=== PATIENT | female | born 1945 | race Caucasian/White ===

== ENCOUNTER 2023-04-13 10:29 | Observation (INO) | payer MEDICARE, SELFPAY ==
[2023-04-13] VITALS (41 sets, daily range): BP systolic 134–211; BP diastolic 52–103; PULSE 56–110; RESP 14–26; TEMP 36.3–36.8; O2SAT 90–98; BMI 30.7
--- NOTE | ~2023-04-13 | XR_ITS ---
Portable chest x-ray Comparison: None Clinical History: Chest pain Findings: Lungs are clear, without focal consolidation or pleural effusion. Cardiomediastinal silho uette is stable. Bones and soft tissues are unremarkable. Impression: Clear lungs. Reviewed, dictated and finalized at location M. WAREHOUSING SPECIALIST Impression: Clear lungs.
--- NOTE | ~2023-04-13 | CT_ITS ---
EXAMINATION: CT chest abdomen pelvis wo con DATE: 04/14/2023 07:49 INDICATION: Chest pain. Acute kidney injury. TECHNIQUE: Computed tomography (CT) of the chest, abdomen, and pelvis was performed without intraveno us contrast. Automated exposure control and iterative reconstruction technique were employed. The dos e-length product was 736.71 mGy-cm. COMPARISON: None FINDINGS: CHEST CT: The lungs demonstrate mild atelectasis. There are small pleural effusions. There is a stent in proxim al left subclavian artery. There is left atrial enlargement of the heart. There are coronary artery c alcifications. Pericardial calcifications are noted. There is mild mediastinal lymphadenopathy, likel y reactive. There are bridging endplate osteophytes at multiple levels in the spine, consistent with diffuse idiopathic skeletal hyperostosis (DISH). ABDOMEN/PELVIS CT: The liver and spleen are normal. There are gallstones in the gallbladder, which is normal in size. Th e pancreas and adrenal glands are normal. There are 2 masses in right kidney measuring soft tissue at tenuation measuring up to 18 mm. There is severe atrophy of left kidney. There is an 11 mm cyst in le ft kidney. The bladder is distended. There are no dilated loops of bowel. The appendix is normal. The re are no pathologically enlarged lymph nodes. There is no free intraperitoneal fluid. There are wide spread vascular calcifications. There is mild lumbar spondylosis. IMPRESSION: 1. Small pleural effusions. 2. Calcific pericarditis. 3. Mild mediastinal lymphadenopathy, likely reactive. 4. Cholelithiasis. 5. Right kidney masses, most likely hemorrhagic cysts. Neoplasm cannot be excluded. Abdomen MRI or CT without and with contrast is recommended. 6. Severe atrophy of left kidney. Reviewed, dictated and finalized at location A. RD FILING CLERK IMPRESSION: 1. Small pleural effusions. 2. Calcific pericarditis. 3. Mild mediastinal lymphadenopathy, likely reactive. 4. Cholelithiasis. 5. Right kidney masses, most likely hemorrhagic cysts. Neoplasm cannot be exclu ded. Abdomen MRI or CT without and with contrast is recommended. 6. Severe atrophy of left kidney.
--- NOTE | 2023-04-13 10:46 | ECG_ITS ---
Measurements Intervals [place] Rate: 78 P: -13 MD: 128 QRS: 71 QRSD: 92 T: 72 QT: 384 QTc: 440 Interpretive Statements SINUS RHYTHM NORMAL ECG NO PREVIOUS ECG AVAILABLE FOR COMPARISON Electronically Signed On 04-13-2023 10:55:27 TARIFF COMPILING CLERK by Tomás Fraga D.O.
[2023-04-13 10:59] LABS: Basophils Absolute Auto 0.04 K/mm3 (0.00-0.10); Basophils Percent Auto 0.4 % (0.0-1.0); Eosinophils Absolute Auto 0.02 K/mm3 (0.02-0.50); Eosinophils Percent Auto 0.2 % (1.0-6.0); Hematocrit 32.3 % (35.0-42.0); Hemoglobin 10.5 g/dL (11.7-13.8); Immature Granulocyte Absolute 0.04 K/mm3 (0.00-0.00); Immature Granulocyte Percent A 0.4 % (0.0-0.0); Lymphocytes Absolute Auto 0.99 K/mm3 (1.10-4.50); Lymphocytes Percent Auto 9.7 % (18.0-42.0); Mean Corpuscular HGB Conc 32.5 g/dL (32.0-36.0); Mean Corpuscular Hemoglobin 32.3 pg (27.0-31.0); Mean Corpuscular Volume 99.4 fL (78.0-102.0); Mean Platelet Volume 11.1 fl (9.2-11.8); Monocytes Absolute Auto 1.06 K/mm3 (0.10-0.90); Monocytes Percent Auto 10.4 % (2.0-11.0); Neutrophils Absolute Auto 8.1 K/mm3 (1.7-7.2); Neutrophils Percent Auto 78.9 % (50.0-70.0); Platelet Count Result 209 K/mm3 (150-420); Red Blood Count 3.25 M/mm3 (4.20-5.40); Red Cell Distribution Width 12.9 % (11.6-14.4); White Blood Count 10.2 K/mm3 (4.8-10.8)
--- NOTE | 2023-04-13 11:03 | ED.CHESTPAIN ---
HPI - Chest Pain General Chief Complaint: Chest Pain Stated Complaint: chest pain Time Seen by Provider: 04/13/23 10:46 Source: patient Mode of arrival: ambulatory History of Present Illness HPI narrative: Patient is a 77-year-old female with significant past medical history presents today for chest pain. Patient states she has chest pain that radiates to the back, she states that she also has little bit of neck pain. She has never had this before. She states she did have some shortness of breath this morning however she thinks this was due to the pain. She also states she may have slept wrong. She has never had this pain past. His states she has never had any heart issues well. She is diabetic. Her jeweler 1 her to come in to get checked out. SHe denies any other symptoms. MD complaint: chest pain Onset (ago): hour(s) Timing of current episode: episodic Prior episodes: No Onset: awoke with symptoms Pain location: left chest Pain radiation: left shoulder Severity: mild Pain scale (0-10): 3 Quality: tightness Relieving factors: nothing Exacerbating factors: nothing Treatment prior to arrival: none Risk Factors Coronary artery disease risk factors: diabetes Thoracic aortic dissection risk factors: none Related Data Home Medications Medication Instructions Recorded Confirmed allopurinol 100 mg tablet 100 mg PO DAILY 04/13/23 04/13/23 amlodipine 5 mg tablet 5 mg PO DAILY 04/13/23 04/13/23 atorvastatin 20 mg tablet 20 mg PO HS 04/13/23 04/13/23 glipizide 5 mg tablet 5 mg PO BID 04/13/23 04/13/23 hydrochlorothiazide 12.5 mg tablet 12.5 mg PO DAILY 04/13/23 04/13/23 levothyroxine 150 mcg tablet 150 mcg PO DAILY 04/13/23 04/13/23 lisinopril 2.5 mg tablet 2.5 mg PO DAILY 04/13/23 04/13/23 oxybutynin chloride 10 mg 10 mg PO DAILY 04/13/23 04/13/23 tablet,extended release 24 hr Allergies Allergy/AdvReac Type Severity Reaction Status Date / Time No Known Allergies Allergy Verified 04/13/23 11:01 Review of Systems Review of Systems: All systems reviewed & are unremarkable except as noted in HPI and below Constitutional: Constitutional: Reports as per HPI Eyes: Eyes: Reports no additional eye complaints ENT: Reports system reviewed and no additional complaints, except as documented Cardiovascular: Cardiovascular: Reports chest pain Respiratory: Respiratory: Reports no additional respiratory complaints Gastrointestinal: Gastrointestinal: Reports no additional gastrointestinal complaints Musculoskeletal: Musculoskeletal: Reports no additional musculoskeletal complaints Integumentary/Breasts: Skin/Breast: Reports system reviewed and no additional complaints, except as docu Neurologic: Reports system reviewed and no additional complaints, except as documented Psychiatric: Psychiatric: Reports no additional psychiatric complaints Endocrine: Endocrine: Reports no additional endocrine complaints Hematologic/Lymphatic: Hematologic/Lymphatic: Reports no additional hematologic/lymphatic complaints Exam Const: General: healthy appearing Nutritional Appearance: obese Orientation/consciousness: oriented to person and oriented to place Limitations: no limitations HENMT: Head: normal to inspection Ears: hearing grossly normal bilaterally Eyes: General: appearance normal, both eyes and all related structures Neck: Neck: normal visual inspection Chest: Chest palpation & inspection: normal inspection of the chest Breast/axilla inspection: normal inspection of the breasts Resp: Effort & Inspection: normal respiratory effort Auscultation: clear to auscultation bilaterally Percussion: percussion normal Cardio: Jugular venous distension: no JVD Palpation: normal PMI Rate: regular rate Rhythm: regular rhythm Heart sounds: S1 normal heart sound present and S2 normal heart sound present GI: Inspection: normal to inspection Percussion: Yes normal to percussion Auscultation: normal bowel sounds : General:
[2023-04-13] MEDS: HYDROcodone/acetaminophen (*CRX) 5-325 MG TABLET 1 TAB PO (11:10)
[2023-04-13] MEDS: ASPIRIN 81 MG CHEWABLE TABLET 324 MG PO (11:10)
[2023-04-13 11:16] LABS: INR 1.1; Partial Thromboplastin Time 27.6 SEC (23.90-30.70); Prothrombin Time 11.5 Seconds (9.50-12.10)
[2023-04-13 11:20] LABS: Alanine Aminotransferase 22 U/L (14-59); Alkaline Phosphatase 92 U/L (46-116); Anion Gap 10 mmol/L (8-16); Aspartate Amino Transferase 18 U/L (15-37); Bilirubin,Total 0.5 mg/dL (0.00-1.00); Blood Urea Nitrogen 39 mg/dL (7-18); Carbon Dioxide 25 mmol/L (21-32); Chloride 102 mmol/L (98-108); Estimated CRCL calculation 19 ml/min; Estimated Glomerular Filt Rate 23; Glucose 161 mg/dL (70-99); NT Pro B Type Natriuretic Pept 1329 pg/mL (0-450); Osmolality Calculated 296 mOsm/kg (285-295); Sodium 137 mmol/L (136-145); Total Protein 6.7 g/dL (6.4-8.2); Troponin I 16.1 ng/L (0.00-60.4)
[2023-04-13 11:23] LABS: D Dimer 0.57 mg/L (0.19-0.50)
[2023-04-13] MEDS: ACETAMINOPHEN/CODEINE (*CRX) 300/30 MG TABLET 1 TAB PO (13:01)
[2023-04-13 16:28] LABS: Troponin I 17.7 ng/L (0.00-60.4)
[2023-04-13] MEDS: SODIUM CHLORIDE 0.9% IV 1,000 ML 150 ML IV CONT (17:35)
--- NOTE | 2023-04-13 18:00 | ADMGEN ---
This patient, Anabell Willard, was admitted to 2nd Floor Room 204-1. Patient/family oriented to hospital policies and general routines including ID bracelet, bed and alarms, visiting hours, pain management, procedures, bathroom and other care routines, personal items, smoking policy, room service/diet, and visiting hours. Information on how to activate the Rapid Response Team has been discussed. Patient/Family are encouraged to report perceived risks to care and to ask questions if they do not understand what they are told or what they should do.
[2023-04-13] MEDS: hydrALAZINE HCL 20 MG/ML VIAL 10 MG IV PUSH (19:40)
[2023-04-13] MEDS: amLODIPine BESYLATE 5 MG TABLET PO (19:41)
[2023-04-13 19:43] LABS: Thyroid Stimulating Hormone Reflex 0.07 u/IU/mL (0.36-3.74)
[2023-04-13 19:45] LABS: Phosphorus 3.6 mg/dL (2.6-4.7)
[2023-04-13 19:46] LABS: Creatine Kinase 55 U/L (26-192); Magnesium 1.8 mg/dL (1.8-2.4)
[2023-04-13 20:15] LABS: Glucose Point of Care 141 mg/dl (65-105)
[2023-04-13] MEDS: ATORVASTATIN 10 MG TABLET 20 MG PO (20:17)
[2023-04-13] MEDS: LACTATED RINGERS 1,000 ML 75 ML IV CONT (22:53)
[2023-04-14] VITALS: BP 110/56; PULSE 71; PULSE 79; RESP 20; TEMP 36.6; O2SAT 93
[2023-04-14 03:57] VITALS: PULSE 72
[2023-04-14 04:00] VITALS: BP 110/60; PULSE 71; RESP 16; TEMP 36.4; O2SAT 93
[2023-04-14 05:15] LABS: Basophils Absolute Auto 0.04 K/mm3 (0.00-0.10); Basophils Percent Auto 0.5 % (0.0-1.0); Eosinophils Absolute Auto 0.19 K/mm3 (0.02-0.50); Eosinophils Percent Auto 2.5 % (1.0-6.0); Hematocrit 31.4 % (35.0-42.0); Hemoglobin 10.1 g/dL (11.7-13.8); Immature Granulocyte Absolute 0.02 K/mm3 (0.00-0.00); Immature Granulocyte Percent A 0.3 % (0.0-0.0); Lymphocytes Absolute Auto 1.36 K/mm3 (1.10-4.50); Lymphocytes Percent Auto 17.8 % (18.0-42.0); Mean Corpuscular HGB Conc 32.2 g/dL (32.0-36.0); Mean Corpuscular Hemoglobin 32.5 pg (27.0-31.0); Monocytes Percent Auto 11.8 % (2.0-11.0); Neutrophils Absolute Auto 5.1 K/mm3 (1.7-7.2); Neutrophils Percent Auto 67.1 % (50.0-70.0); Platelet Count Result 182 K/mm3 (150-420); Red Blood Count 3.11 M/mm3 (4.20-5.40); White Blood Count 7.6 K/mm3 (4.8-10.8)
[2023-04-14 05:30] LABS: Alanine Aminotransferase 21 U/L (14-59); Albumin Level 2.6 g/dL (3.4-5.0); Alkaline Phosphatase 85 U/L (46-116); Anion Gap 8 mmol/L (8-16); Aspartate Amino Transferase 16 U/L (15-37); Bilirubin,Total 0.5 mg/dL (0.00-1.00); Blood Urea Nitrogen 38 mg/dL (7-18); Calcium 9.2 mg/dL (8.5-10.1); Carbon Dioxide 27 mmol/L (21-32); Chloride 106 mmol/L (98-108); Estimated CRCL calculation 19 ml/min; Estimated Glomerular Filt Rate 24; Glucose 108 mg/dL (70-99); Magnesium 1.7 mg/dL (1.8-2.4); Osmolality Calculated 302 mOsm/kg (285-295); Sodium 141 mmol/L (136-145); Total Protein 6.3 g/dL (6.4-8.2)
[2023-04-14] MEDS: LEVOTHYROXINE SODIUM 75 MCG TABLET 150 MCG PO (06:04)
--- NOTE | 2023-04-14 06:32 | PC.NURSE ---
On 04/14/23, the NUTRITION PROFESSOR, [Roxann Perez ], provided care and completed [facility] documentation on this patient. I have reviewed the NUTRITION PROFESSOR's documentation and agree with the findings.
--- NOTE | 2023-04-14 07:27 | PM.IMHP ---
H&P: HPI History of Present Illness Date/Time: 04/14/23 07:27 Chief Complaint: chest pain, elevated blood pressure PMFSH Social History Social History Smoking status: Never smoker Alcohol intake: never Substance use: never Substance use type: does not use Lack of Transportation: YES Lack of Food: Never True Current Housing: I Have Housing Concerned About Future Housing: No Difficulty Paying Gas/Electric Bills: No Difficulty Paying for Meds: No Currently Unemployed: No Education: High School Diploma/GED Difficulty w/ Childcare or Family Care: No Spiritual care concerns: No Meds Home Medications and Allergies Home Medications Medication Instructions Recorded Confirmed Type allopurinol 100 mg tablet 100 mg PO DAILY 04/13/23 04/13/23 History amlodipine 5 mg tablet 5 mg PO DAILY 04/13/23 04/13/23 History atorvastatin 20 mg tablet 20 mg PO HS 04/13/23 04/13/23 History glipizide 5 mg tablet 5 mg PO BID 04/13/23 04/13/23 History hydrochlorothiazide 12.5 mg tablet 12.5 mg PO DAILY 04/13/23 04/13/23 History levothyroxine 150 mcg tablet 150 mcg PO DAILY 04/13/23 04/13/23 History lisinopril 2.5 mg tablet 2.5 mg PO DAILY 04/13/23 04/13/23 History oxybutynin chloride 10 mg 10 mg PO DAILY 04/13/23 04/13/23 History tablet,extended release 24 hr Allergies Allergy/AdvReac Type Severity Reaction Status Date / Time No Known Allergies Allergy Verified 04/13/23 11:01 Vital Signs Vital Signs - 24 hr 04/13/23 10:33 04/13/23 10:45 04/13/23 14:15 Temperature 36.8 C Pulse Rate 110 H 66 67 Respiratory Rate 17 20 Blood Pressure 211/58 H 175/85 H Pulse Oximetry 98 95 Oxygen Delivery Room Air Room Air 04/13/23 10:38 04/13/23 10:45 04/13/23 11:00 Temperature Pulse Rate 79 89 71 Respiratory Rate 20 20 20 Blood Pressure Pulse Oximetry 95 92 Oxygen Delivery 04/13/23 11:15 04/13/23 11:30 04/13/23 11:45 Temperature Pulse Rate 71 67 65 Respiratory Rate 19 20 18 Blood Pressure 200/60 H Pulse Oximetry 95 90 Oxygen Delivery 04/13/23 12:20 04/13/23 12:31 04/13/23 12:45 Temperature Pulse Rate 63 72 62 Respiratory Rate 20 20 17 Blood Pressure 201/68 H Pulse Oximetry 90 96 91 Oxygen Delivery 04/13/23 13:00 04/13/23 13:15 04/13/23 13:30 Temperature Pulse Rate 65 58 L 61 Respiratory Rate 19 17 17 Blood Pressure Pulse Oximetry 91 92 92 Oxygen Delivery 04/13/23 13:45 04/13/23 14:00 04/13/23 14:14 Temperature Pulse Rate 61 63 60 Respiratory Rate 16 16 19 Blood Pressure 180/95 H 175/95 H Pulse Oximetry 90 93 96 Oxygen Delivery 04/13/23 14:15 04/13/23 14:16 04/13/23 14:30 Temperature Pulse Rate 59 L 60 59 L Respiratory Rate 17 17 18 Blood Pressure 187/61 H Pulse Oximetry 95 92 92 Oxygen Delivery 04/13/23 14:31 04/13/23 14:45 04/13/23 14:46 Temperature Pulse Rate 58 L 56 L 69 Respiratory Rate 16 18 26 H Blood Pressure 141/63 H 155/61 H Pulse Oximetry 92 91 92 Oxygen Delivery 04/13/23 15:00 04/13/23 15:01 04/13/23 15:15 Temperature Pulse Rate 64 63 71 Respiratory Rate 18 19 18 Blood Pressure 153/103 H Pulse Oximetry 96 95 95 Oxygen Delivery 04/13/23 15:16 04/13/23 15:30 04/13/23 15:31 Temperature Pulse Rate 62 62 58 L Respiratory Rate 18 18 18 Blood Pressure 161/57 H 157/74 H Pulse Oximetry 93 94 94 Oxygen Delivery 04/13/23 15:32 04/13/23 15:45 04/13/23 16:00 Temperature Pulse Rate 57 L 70 64 Respiratory Rate 16 18 18 Blood Pressure Pulse Oximetry 93 94 96 Oxygen Delivery 04/13/23 16:15 04/13/23 16:16 04/13/23 16:30 Temperature Pulse Rate 57 L 61 61 Respiratory Rate 16 18 18 Blood Pressure 134/87 Pulse Oximetry 96 95 95 Oxygen Delivery 04/13/23 16:32 04/13/23 16:45 04/13/23 16:46 Temperature Pulse Rate 58 L 60 60 Respiratory Rate 18 14 18 Blood Pressure 179/66 H 171/59 H Pulse Oximetry 94 96 94 Oxygen Delivery
[2023-04-14 07:29] VITALS: BP 153/70; PULSE 67; PULSE 74; RESP 18; TEMP 36.8; O2SAT 94
[2023-04-14 07:34] LABS: Glucose Point of Care 100 mg/dl (65-105)
[2023-04-14 07:50] LABS: Hemoglobin A1C 6.5 % (<5.7)
[2023-04-14] MEDS: oxyBUTYnin CHLORIDE XL 5 MG TAB.ER.24 10 MG PO (08:13)
[2023-04-14] MEDS: amLODIPine BESYLATE 5 MG TABLET PO (08:14)
[2023-04-14] MEDS: glipiZIDE 5 MG TABLET PO (08:14)
[2023-04-14] MEDS: ENOXAPARIN 30 MG/0.3 ML SYRINGE SUB-Q (08:14)
--- NOTE | 2023-04-14 08:29 | PM.SD2 ---
Same Day Admit/Disch: HPI History of Present Illness Chief complaint: chest pain Narrative: Anabell Willard is a 77 year old female admitted last night by ER physician with a chief complaint back pain radiating into the chest with accompanied headache and elevated blood pressure. Patient reports that she sees primary care on the other side [facility] and also sees Nephrology in [place] related to her chronic kidney disease stage IV. Patient reports that her last GFR about a year ago was 26. Patient did not have any prior visits or lab results in our system. Once patient was admitted she received a dose of hydralazine and amlodipine which brought her blood pressure down and relieved all of her symptoms. This morning on evaluation patient was very anxious to be discharged so she can get back to work tomorrow. She was upset about having to miss a day of work today. Patient reports that all of her medications have been adjusted within the confines of her chronic kidney disease and diabetes. She denies any difficulty breathing now or previously. She denies any current back pain or chest pain. She denies any nausea vomiting constipation diarrhea fever chills or shortness of breath. PENDING SALE TO [facility] Past Medical History Medical History CKD stage 4 due to type 2 diabetes mellitus Hypertensive crisis Social History Social History Smoking status: Never smoker Alcohol intake: never Substance use: never Substance use type: does not use Lack of Transportation: YES Lack of Food: Never True Current Housing: I Have Housing Concerned About Future Housing: No Difficulty Paying Gas/Electric Bills: No Difficulty Paying for Meds: No Currently Unemployed: No Education: High School Diploma/GED Difficulty w/ Childcare or Family Care: No Spiritual care concerns: No Same Day Admit/Disch: Med Pre-admit Medications Home Medications Medication Instructions Recorded Confirmed Type allopurinol 100 mg tablet 100 mg PO DAILY 04/13/23 04/13/23 History amlodipine 5 mg tablet 5 mg PO DAILY 04/13/23 04/13/23 History atorvastatin 20 mg tablet 20 mg PO HS 04/13/23 04/13/23 History glipizide 5 mg tablet 5 mg PO BID 04/13/23 04/13/23 History hydrochlorothiazide 12.5 mg tablet 12.5 mg PO DAILY 04/13/23 04/13/23 History levothyroxine 150 mcg tablet 150 mcg PO DAILY 04/13/23 04/13/23 History lisinopril 2.5 mg tablet 2.5 mg PO DAILY 04/13/23 04/13/23 History oxybutynin chloride 10 mg 10 mg PO DAILY 04/13/23 04/13/23 History tablet,extended release 24 hr Review of Systems Review of Systems All systems reviewed & are unremarkable except as noted in HPI and below Exam Const: General: comfortable and no acute distress Other: Alert oriented and pleasant HENMT: Face/Nose/Sinus: Normal nares present Mouth: Yes moist mucous membranes Eyes: General: appearance normal, both eyes and all related structures Sclera: sclerae normal Pupils: Equal, round and reactive pupils present EOM: EOMs intact bilaterally Neck: Neck: supple and no JVD Lymphatic: lymphadenopathy not noted Resp: Effort & Inspection: normal respiratory effort Auscultation: clear to auscultation bilaterally Cardio: Rate: regular rate Rhythm: regular rhythm Heart sounds: no gallops, no murmurs and no rubs GI: Inspection: non-distended GI Palp: Yes Soft to palpation, No Tenderness to palpation present (GI) and No Guarding due to palpation present (GI) Auscultation: normal bowel sounds : General: Yes bladder normal to palpation Skin: General skin exam: normal color, no rashes or lesions noted and no erythema Lesions: no lesions noted Rashes: no rashes noted Wounds: no wounds Neuro: General: gait normal Speech: normal speech Motor exam (neuro): 5/5 motor strength present throughout and Normal motor muscle tone present throughout Sensory Exam: normal s
[2023-04-14 09:54] LABS: Appearance Urine Clear (Clear); Bilirubin Urine Negative (Negative); Blood Urine Negative (Negative); Color Urine Light Yellow (Yellow); Glucose Urine UA Negative (Negative); Ketones Urine Negative (Negative); Leukocyte Esterase Ur Negative LEU/UL (Negative); Nitrate Urine Negative (Negative); Protein Urine Negative (Negative); Urobilinogen Urine 0.2 mg/dL (0.2-1.0)
[2023-04-14 09:58] LABS: Add Urine Microscopic? NO
--- NOTE | 2023-04-14 11:45 | PC.NURSE ---
IV site and telemetry discontinued for discharge at 1125. Discharge instructions given to patient and her daughter. Both voiced understanding. Personal items sent home with patient. Patient left unit in w/c and left hospital grounds in privately owned vehicle.
--- NOTE | 2023-04-17 08:28 | PC.NURSE ---
Discharge call back completed, doing well, no complaints regarding care, no questions about dc instructions
== END 2023-04-14 11:45 | disposition home or self-care (01) ==
LOC: CHSED 11:13 → CHS2ND 17:33
PROVIDERS: Nurse Practitioner; Admitting Provider Internal Medicine; Emergency Provider Family Medicine; PCP Family Medicine; Visit Provider Internal Medicine
DX: I16.9 Hypertensive crisis, unspecified (principal); I13.0 Hypertensive heart and chronic kidney disease with heart failure and stage 1 through stage 4 chronic kidney disease, or unspecified chronic kidney disease; E11.22 Type 2 diabetes mellitus with diabetic chronic kidney disease; N18.4 Chronic kidney disease, stage 4 (severe); I50.9 Heart failure, unspecified; N17.9 Acute kidney failure, unspecified; N28.89 Other specified disorders of kidney and ureter; J90 Pleural effusion, not elsewhere classified; M54.9 Dorsalgia, unspecified; M54.2 Cervicalgia; K80.20 Calculus of gallbladder without cholecystitis without obstruction; I31.1 Chronic constrictive pericarditis; R59.0 Localized enlarged lymph nodes; N26.1 Atrophy of kidney (terminal); Z79.84 Long term (current) use of oral hypoglycemic drugs; Z79.899 Other long term (current) drug therapy
CPT/HCPCS: 36415; 71045; 71250; 74176; 80053; 81003; 82550; 82948; 83036; 83735; 83880; 84100; 84439; 84443; 84484; 85025; 85380; 85610; 85730; 93005; 96361; 96372; 96374; 99285; A9270; G0378; J0360; J1650; J7030; J7120